=== PATIENT | male | born 1985 | race Caucasian/White ===

== ENCOUNTER 2020-12-31 19:10 | Emergency (ER) | payer OTHER ==
--- NOTE | 2020-12-31 20:14 | EDM.PDOC ---
ED HPI GENERAL MEDICAL PROBLEM - General Chief Complaint: Lower Extremity Injury/Pain Stated Complaint: LEFT LEG SWOLLEN/PAINFUL-SENT BY [facility] Time Seen by Provider: 12/31/20 20:03 Source of Information: Reports: Patient History Limitations: Reports: No Limitations - History of Present Illness INITIAL COMMENTS - FREE TEXT/NARRATIVE: Mr. Elliott is a very pleasant 35-year-old gentleman who now presents the ED with 10 days of distal left leg and ankle pain and swelling, worse over the past 2 days. No associated fever. No history of trauma. He states that he went to the walk-in clinic to have it evaluated today, but that he was sent here. The patient states that he took some naproxen around 03:00 this morning, otherwise, he has not attempted any [id number] or home remedies. Here in the ED, the patient's initial BP is found to be modestly elevated at 158/95, otherwise, he is hemodynamically stable, afebrile, saturating 98% on room air. Other than his distal left leg and ankle issue, the patient denies having a recent fever, chills, sore throat, ear pain, nasal or sinus congestion, cough, dyspnea, chest pain, palpitations, nausea, vomiting, constipation, diarrhea, abdominal pain, urinary symptoms, recent weight gain or weight loss, recent bloody bowel movements or black bowel movements, recent joint aches, headaches, or rashes. The patient does not have a PCP. He has not received an influenza vaccine this season, and declined an offer to get one here in the ED. left leg Pain Score (Numeric/FACES): 8 - Related Data Allergies Allergy/AdvReac Type Severity Reaction Status Date / Time egg Allergy Severe Hives Verified 12/31/20 19:43 Penicillins Allergy Severe Anaphylactic Verified 12/31/20 19:43 Shock Home Meds: Home Meds Testosterone 1 injection INJECT WEEKLY 12/31/20 [History] Past Medical History Endocrine/Metabolic History: Reports: Obesity/BMI 30+ - Past Surgical History HEENT Surgical History: Reports: Adenoidectomy, Tonsillectomy Social & Family History - Tobacco Use Tobacco Use Status *Q: Former Tobacco User Years of Tobacco use: 18 Packs/Tins Daily: 1 Month/Year Tobacco Last Used: Quit Apr 2020 Tobacco Use Comment: Started smoking at 16 yrs old - Alcohol Use Alcohol Use History: Yes Alcohol Use Frequency: Rarely - Recreational Drug Use Recreational Drug Use: No - Living Situation & Occupation Living situation: Reports: , with Spouse, with Family (1 daughter) 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 ED EXAM, GENERAL - Physical Exam Exam: See Below Exam Limited By: No Limitations General Appearance: Alert, WD/WN, No Apparent Distress Extremities: Other (Very mild edema to the left ankle and distal 1/3 of the left leg, with tenderness to palpation. No erythema or ecchymosis. Neurovascular status of the left lower extremity is intact.) Course - Vital Signs Last Recorded V/S: Last Vital Signs Temp 36.6 C 12/31/20 19:39 Pulse 76 12/31/20 19:39 Resp 18 12/31/20 19:39 BP 158/95 H 12/31/20 19:39 Pulse Ox 98 12/31/20 19:39 - Orders/Labs/Meds Labs: Laboratory Tests 12/31/20 Range/Units 20:27 PT 11.4 (9.7-12.0) SECONDS INR 1.07 APTT 29.3 (21.7-31.4) SECONDS - Re-Assessments/Exams Free Text/Narrative Re-Assessment/Exam: 12/31/20 20:12 As above, the patient has had 10 days of pain and swelling to the distal 1/3 of his left leg and ankle, without injury. On examination, he has very mild edema to the area, which is tender to palpation. Neurovascular status of the left lower extremity is intact. I have ordered a work-up and includes a Doppler of his left lower extremity to evaluate for DVT, along with coags. 12/31/20 21:27 Doppler ultrasound of the left lower extremity is read by Dr. Bowles as: 1. No findings of deep venous thrombosis within the left lower extremity. The patient's coags are within normal limits. 12/31/20 21:31 Test results discussed with the patient. With a negative work-up, I cannot really say what the cause of the patient's symptoms are, however, does not appear to be due to anything serious. I recommended that he ice and elevate his left lower extremity for a few days. He may continue to take OTC naproxen. Because the patient works for himself, he does not need a note for work. Departure - Departure Time of Disposition: 21:31 Disposition: Home, Self-Care 01 Condition: Good Clinical Impression: Left leg swelling - Discharge Information *PRESCRIPTION DRUG MONITORING PROGRAM REVIEWED*: Not Applicable *COPY OF PRESCRIPTION DRUG MONITORING REPORT IN PATIENT [place]: Not Applicable Referrals: PCP,None [Primary Care Provider] - Forms: ED Department Discharge Additional Instructions: You were seen in the emergency room for 10 days of distal left leg and ankle pain and swelling. Work-up in the ER included a Doppler ultrasound of your left leg, as well as some blood tests. Your entire work-up was unremarkable, and does not explain the cause of your symptoms. You do not have a blood clot in your leg. We recommend that you elevate your left leg is much as possible over the next 2 to 3 days, and apply ice packs for 10 to 15 minutes, at least 5 times a day. You may continue to take [id number] naproxen every 12 hours, with food, as needed for discomfort. If any other problems, please do not hesitate to return to the ER. Sepsis Event Note (ED) - Evaluation Sepsis Screening Result: No Definite Risk - Focused Exam Vital Signs: Vital Signs Temp Pulse Resp BP Pulse Ox 12/31/20 19:39 36.6 C 76 18 158/95 H 98
--- NOTE | 2020-12-31 21:14 | US ---
Left lower extremity deep venous ultrasound: Duplex and color Doppler evaluation was obtained of the left common femoral, proximal greater saphenous, superficial femoral, popliteal, posterior tibial and peroneal veins. Right common femoral vein was also evaluated. Comparison: No prior venous imaging is available. Findings: Normal phasic flow, augmentation and compression is seen. Impression: 1. No findings of deep venous thrombosis within the left lower extremity. Diagnostic code #1
== END 2020-12-31 21:41 | disposition home or self-care (01) ==
LOC: JD.ED 19:10
DX: M79.89 Other specified soft tissue disorders (principal); M25.572 Pain in left ankle and joints of left foot; M79.605 Pain in left leg; E66.9 Obesity, unspecified; Z88.0 Allergy status to penicillin; Z91.012 Allergy to eggs; Z87.891 Personal history of nicotine dependence; Z68.39 Body mass index [BMI] 39.0-39.9, adult
CPT/HCPCS: 36415; 85610; 85730; 93971-26-LT; 93971-LT; 99282; 99284-25